=== PATIENT | male | born 1980 | race Caucasian/White ===

== ENCOUNTER 2016-11-19 20:50 | Emergency (ER) | payer OTHER ==
[2016-11-19 20:57] VITALS: BP 127/80; PULSE 90; TEMP 97.8; BMI 31.1
[2016-11-19 21:51] LABS: MCH 31.5 pg (25.7-33.7); MEAN CELL VOLUME 92.7 fl (80-96); MEAN PLT VOLUME 8.9 fl (7.5-11.1); PLATELET COUNT 183 K/MM3 (134-434); RDW 13.7 % (11.9-15.9); WHITE BLOOD COUNT 5.9 K/mm3 (4.0-10.0)
--- NOTE | 2016-11-19 21:57 | PDOC ---
History of Present Illness - General Chief Complaint: Diarrhea Stated Complaint: COUGHING AND DIARRHEA History Source: Patient Exam Limitations: No Limitations - History of Present Illness Initial Comments: 11/19/16 21:57 Patient is a 36-year-old male with history of bipolar disorder, tonsillectomy, back surgery, left ankle surgery here with multiple complaints which include coughing, diarrhea. Patient states that for the past 4-5 days he gets up at night coughing, then sweating, no fever which lasts for about 15 minutes, then has sudden onset of cramping in his left side of abdomen then diarrhea. He describes it diarrhea as not watery but lumpy and dry. States he has no symptoms during the day. These symptoms started after eating a burrito with somebody spotting. States he had recurring episodes all night. States symptoms started after he bit through a burrito and he saw the glob of spit. Denies any homicidal or suicidal ideations. PMD/psych: [facility] PMHx: As above PFAMHx: Noncontributory to this exam PSocHx: neg ALL: NKDA GENERAL/CONSTITUTIONAL: [No fever or chills. No weakness. No weight change.] HEAD, EYES, EARS, NOSE AND THROAT: [No change in vision. No ear pain or discharge. No sore throat.] CARDIOVASCULAR: [No chest pain or shortness of breath.] RESPIRATORY: [No cough, wheezing, or hemoptysis.] GASTROINTESTINAL: [No nausea, vomiting,(+) diarrhea or constipation. No rectal bleeding.] GENITOURINARY: [No dysuria, frequency, or change in urination.] MUSCULOSKELETAL: [No joint or muscle swelling or pain. No neck or back pain.] SKIN AND BREASTS: [No rash or easy bruising.] NEUROLOGIC: [No headache, vertigo, loss of consciousness, or loss of sensation.] PSYCHIATRIC: (+) depression or anxiety.] ENDOCRINE: [No increased thirst. No abnormal weight change.] HEMATOLOGIC/LYMPHATIC: [No anemia, easy bleeding, or history of blood clots.] ALLERGIC/IMMUNOLOGIC: [No hives or skin allergy. No latex allergy.] GENERAL: [The patient is awake, alert, and fully oriented, in no acute distress. ] HEAD: [Normal with no signs of trauma.] EYES: [Pupils equal, dilated, round and reactive to light, extraocular movements intact, sclera anicteric, conjunctiva clear.] ENT: [Ears normal, nares patent, oropharynx clear without exudates. Moist mucous membranes.] NECK: [Normal range of motion, supple without lymphadenopathy, JVD, or masses.] LUNGS: [Breath sounds equal, clear to auscultation bilaterally. No wheezes, and no crackles.] HEART: [Regular rate and rhythm, normal S1 and S2 without murmur, rub.] ABDOMEN: [Soft, nontender, normoactive bowel sounds. No guarding, no rebound. No masses.] EXTREMITIES: [Normal range of motion, no edema. No clubbing or cyanosis. No cords, erythema, or tenderness.] NEUROLOGICAL: [Cranial nerves II through XII grossly intact. Normal speech, normal gait.] PSYCH: [Normal mood, normal affect.] SKIN: [Warm, Dry, normal turgor, no rashes or lesions noted.] Past History - Past Medical History Allergies/Adverse Reactions: Allergies Allergy/AdvReac Type Severity Reaction Status Date / Time animals dander. Allergy Difficulty Uncoded 11/19/16 20:55 Breathing Home Medications: Ambulatory Orders NK [No Known Home Medication] 09/22/15 Psychiatric Problems: Yes (bipolar) - Surgical History Neurologic Surgery: Yes (l4 laminectomy) - Psycho/Social/Smoking Cessation Hx Anxiety: No Suicidal Ideation: No Smoking Status: Yes Smoking History: Current every day smoker Number of Cigarettes Smoked Daily: 5 Information on smoking cessation initiated: No Hx Alcohol Use: Yes (last drink friday ) Drug/Substance Use Hx: Yes (marijuana) Substance Use Type: Marijuana Hx Substance Use Treatment: No *Physical Exam - Vital Signs Last Vital Signs Temp Pulse Resp BP Pulse Ox 97.8 F 90 18 127/80 97 11/19/16 20:56 11/19/16 20:56 11/19/16 20:56 11/19/16 20:56 11/19/16 20:56 ED Treatment Course - LABORATORY CBC & Chemistry Diagram: 11/19/16 21:20 11/19/16 22:30 - RADIOLOGY Radiology Studies Ordered: Category Date Time Status CHEST PA & LAT [RAD] Stat Radiology 11/19/16 21:20 Ordered Medical Decision Making - Medical Decision Making 11/19/16 22:05 Patient is a 36-year-old male with history of bipolar disorder, tonsillectomy, back surgery, left ankle surgery here with multiple complaints which include coughing, diarrhea. Symptoms are as nonspecific and may be related to his psychiatric disorder. However we will get labs and chest x-ray rule out any organic source. 11/19/16 23:50 Lab work there are no acute findings, chest x-ray is negative. Patient now complains of constipation. I discussed the physical exam findings, ancillary test results and final diagnoses with the patient. I answered all of the patient's questions. The patient was satisfied with the care received and felt comfortable with the discharge plan and treatment plan. The Patient agrees to follow up with the primary care physician within 24-72 hours. *DC/Admit/Observation/Transfer Diagnosis at time of Disposition: Cough Diarrhea Qualifiers: Diarrhea type: unspecified type Qualified Code(s): R19.7 - Diarrhea, unspecified - Discharge Dispostion Disposition: HOME Condition at time of disposition: Stable - Patient Instructions Printed Discharge Instructions: DI for Cough -- Adult, DI for Diarrhea and Traveler's Diarrhea -- Adult Additional Instructions: Your Discharge Instructions: You must call primary care physician within 24 hours to arrange follow-up. Return to the Emergency Department with any new, persistent or worsening symptoms, for fever, chills, SOB, dizziness or any other concerning changes that may occur. You need to follow-up with your primary care doctor to get a GI referral
--- NOTE | 2016-11-19 23:20 | PDOC ---
*Physical Exam - Vital Signs Last Vital Signs Temp Pulse Resp BP Pulse Ox 97.8 F 90 18 127/80 97 11/19/16 20:56 11/19/16 20:56 11/19/16 20:56 11/19/16 20:56 11/19/16 20:56 ED Treatment Course - LABORATORY CBC & Chemistry Diagram: 11/19/16 21:20 11/19/16 22:30 - ADDITIONAL ORDERS Additional order review: Laboratory Results 11/19/16 21:20 Sodium Cancelled Potassium Cancelled Chloride Cancelled Carbon Dioxide Cancelled Anion Gap Cancelled BUN Cancelled Creatinine Cancelled Creat Clearance w eGFR Cancelled Random Glucose Cancelled Calcium Cancelled Total Bilirubin Cancelled AST Cancelled ALT Cancelled Alkaline Phosphatase Cancelled Total Protein Cancelled Albumin Cancelled 11/19/16 21:20 RBC 5.24 MCV 92.7 MCHC 34.0 RDW 13.7 MPV 8.9 Medical Decision Making - Medical Decision Making 11/19/16 23:19 agree with care from GABE Bettencourt *DC/Admit/Observation/Transfer Diagnosis at time of Disposition: Cough, Diarrhea - Discharge Dispostion Disposition: HOME Condition at time of disposition: Stable - Patient Instructions Printed Discharge Instructions: DI for Cough -- Adult, DI for Diarrhea and Traveler's Diarrhea -- Adult Additional Instructions: Your Discharge Instructions: You must call primary care physician within 24 hours to arrange follow-up. Return to the Emergency Department with any new, persistent or worsening symptoms, for fever, chills, SOB, dizziness or any other concerning changes that may occur. You need to follow-up with your primary care doctor to get a GI referral
[2016-11-19 23:30] LABS: ALBUMIN 4.7 g/dl (3.4-5.0); ALK PHOS 55 U/L (45-117); ANION GAP 11 (8-16); BILIRUBIN,TOTAL 0.9 mg/dL (0.2-1.0); CALCIUM 9.1 mg/dL (8.5-10.1); CO2 24 mmol/L (21-32); CREATININE 0.8 mg/dL (0.7-1.3); GLUCOSE,RANDOM 90 mg/dL (74-106); SGOT/AST 46 U/L (15-37); SGPT/ALT 44 U/L (12-78); TOT PROT 7.2 g/dl (6.4-8.2)
== END 2016-11-20 00:20 | disposition home or self-care (01) ==
LOC: JER 20:50
DX: R05 Cough (principal); R19.7 Diarrhea, unspecified; F17.210 Nicotine dependence, cigarettes, uncomplicated; F31.9 Bipolar disorder, unspecified
CPT/HCPCS: 36415; 71020-TC; 80053; 85027; 99282-25

== ENCOUNTER 2017-10-01 20:41 | Emergency (ER) | payer OTHER ==
--- NOTE | 2017-10-01 20:48 | PDOC ---
Rapid Medical Evaluation Time Seen by Provider: 10/01/17 20:43 Medical Evaluation: Allergies Allergy/AdvReac Type Severity Reaction Status Date / Time animals dander. Allergy Difficulty Uncoded 11/19/16 20:55 Breathing 10/01/17 20:44 The patient presents with a chief complaint of: std w/u. unprotected sex 4 hrs ago with unknown female I have performed a brief in-person evaluation of this patient. Pertinent physical exam findings: vss I have ordered the following: std w/u, gc/chyl. hiv, rpr The patient will proceed to the ED for further evaluation. Discharge Disposition - Diagnosis Concern about STD in male without diagnosis - Referrals - Patient Instructions - Post Discharge Activity
[2017-10-01 20:50] VITALS: BP 123/81; PULSE 90; TEMP 97.9; BMI 31.6
--- NOTE | 2017-10-01 21:14 | PDOC ---
History of Present Illness - General Chief Complaint: Non EmpBld/Body Flud Exposure Stated Complaint: EVALUATION Time Seen by Provider: 10/01/17 20:43 History Source: Patient - History of Present Illness Timing/Duration: 4-6 hours Past History - Past Medical History Allergies/Adverse Reactions: Allergies Allergy/AdvReac Type Severity Reaction Status Date / Time No Known Drug Allergies Allergy Verified 10/01/17 20:46 animals dander. Allergy Difficulty Uncoded 11/19/16 20:55 Breathing Home Medications: Ambulatory Orders NK [No Known Home Medication] 09/22/15 COPD: No Psychiatric Problems: Yes (bipolar) - Surgical History Neurologic Surgery: Yes (l4 laminectomy) - Suicide/Smoking/Psychosocial Hx Smoking Status: Yes Smoking History: Current every day smoker Have you smoked in the past 12 months: No Number of Cigarettes Smoked Daily: 5 Information on smoking cessation initiated: No Hx Alcohol Use: Yes Drug/Substance Use Hx: Yes (marijuana) Substance Use Type: Alcohol, Marijuana Hx Substance Use Treatment: No Review of Systems - Review of Systems Constitutional: No: Fever : No: Dysuria, Discharge *Physical Exam - Vital Signs Last Vital Signs Temp Pulse Resp BP Pulse Ox 97.9 F 90 18 123/81 97 10/01/17 20:47 10/01/17 20:47 10/01/17 20:47 10/01/17 20:47 10/01/17 20:47 - Physical Exam General Appearance: Yes: Appropriately Dressed. No: Apparent Distress HEENT: positive: Normal Voice Neck: positive: Supple Respiratory/Chest: negative: Respiratory Distress Integumentary: positive: Dry, Warm Neurologic: positive: Fully Oriented, Alert, Normal Mood/Affect Medical Decision Making - Medical Decision Making 10/01/17 21:09 37-year-old male here for STD testing after condom broke with a new female during sexual intercourse 4 hours ago. Denies any symptoms at this time. No h/ o STD and tested neg for HIV in the past per pt. Tests sent from triage. Pt prefers to call for results. Pt informed that that even if he was exposed to a disease tonight, it will take a while for the body to mount a reaction, so if he is concerned, should be retested again in the near future or return to ER if becomes symptomatic *DC/Admit/Observation/Transfer Diagnosis at time of Disposition: Concern about STD in male without diagnosis - Discharge Dispostion Disposition: HOME Condition at time of disposition: Good - Referrals - Patient Instructions Additional Instructions: Some of your tests will come back by tomorrow, call for results at [phone]
[2017-10-01 21:19] LABS: URINE APPEARANCE CLEAR; URINE BILIRUBIN NEGATIVE (NEGATIVE); URINE BLOOD 1+ (NEGATIVE); URINE COLOR YELLOW; URINE GLUCOSE (UA) NEGATIVE (NEGATIVE); URINE KETONE TRACE (NEGATIVE); URINE LEUK ESTERASE NEGATIVE (NEGATIVE); URINE NITRITE NEGATIVE (NEGATIVE); URINE PROTEIN NEGATIVE (NEGATIVE)
[2017-10-01 21:22] LABS: URINE MUCUS RARE; URINE RBC 2 /hpf (0-3); URINE WBC <1 /hpf (3-5)
[2017-10-02 11:53] LABS: URINE LEUK ESTERASE Negative (NEGATIVE)
== END 2017-10-01 21:16 | disposition home or self-care (01) ==
LOC: JERFT 20:41
DX: Z11.3 Encounter for screening for infections with a predominantly sexual mode of transmission (principal)
CPT/HCPCS: 36415; 81003; 81015; 87491; 87591; 99281-25

== ENCOUNTER 2019-09-03 15:17 | Emergency (ER) | payer OTHER ==
[2019-09-03 15:36] VITALS: BP 116/69; PULSE 79; TEMP 98.4; BMI 29.2
--- NOTE | 2019-09-03 17:36 | PDOC ---
History of Present Illness - General Chief Complaint: Pain Stated Complaint: NECK PAIN 7 HERNIATED DISC THERAPIST REFERRED FOR Time Seen by Provider: 09/03/19 16:56 History Source: Patient Exam Limitations: No Limitations - History of Present Illness Initial Comments: 09/03/19 17:31 38y M hx of herniated discs with 3 years of neck pain presents for prescription pain medicaiton. Patient states that he is being followed by physical therapy for chronic neck pain and had a CAT scan that revealed multiple herniated disks so was sent to the emergency department for a prescription of narcotics. Patient states that his pain has been bothering for 3 years but they finally have evidence of it from the CAT scan. Patient has been taking naproxen with mild relief. He does endorse mild neck pain and tingling when he moves his head left and right. Patient denies any fever or chills, no change to his baseline pain. Patient states He was given a referral to pain management By physical therapy. After I described the importance of him seeing pain management he states that he did see him to do them today also and they said that they will not touch him with a ten foot pole And that he needs to see neurosurgery. Patient denies any urinary incontinence or bowel incontinence. No recent injuries The patient denies any chest pain, shortness of breath, headache. ROS: Constitutional - no reported Fever, Chills, HEENT: +neck pain/back pain no reported vision changes, sore throat Respiratory: no reported cough, sob, hemoptysis Cardiac: no reported chest pain, palpitations, light headedness, leg swelling Abd/GI: no reported abd pain, nausea, vomiting, blood per rectum, melena, diarrhea : no reported dysuria, frequency, discharge Musculskelatal - no reported back pain, joint swelling skin - no reported bruising, erythema, rash neurological: no reported headache, numbness, focal weakness, tingling, ataxia, hematologic: no reported easy bruising, easy bleeding Physicial exam GENERAL: The patient is awake, alert, and fully oriented, Nontoxic - in no acute distress. HEAD: Normocephalic, atraumatic. EYES: extraocular movements intact, sclera anicteric, conjunctiva clear. ENT: Normal voice, Moist mucous membranes. NECK: Normal range of motion, supple, No focal midline or paraspinal tenderness , No limitations of range of motion with movement of neck EXTREMITIES: Normal range of motion, no edema. NEUROLOGICAL: No facial assymetry, Normal speech, [employer] strength symmetric 5 out of 5, sensation intact on the upper extremities, normal gait. PSYCH: Normal mood, normal affect. SKIN: Warm, Dry, normal turgor, Patient with chronic pain taking Aleve with minimal improvement. Patient has no new neurologic complaints or deficits Patient will need pain management For control of his chronic pain. Patient does not seem to have any limitations of movement secondary to pain he looks comfortable walking around talking on his phone moving all extremities extremities spontaneously symmetrically without discomfort. Patient refuses Tramadol stating "he can get that anywhere" Patient not does not have any records on [employer]. I will give the patient a couple of doses of Percocet but he really needs to follow-up with pain management. Patient works multiple jobs requires standing as well as heavy lifting I recommended that patient refrain from these activities until his pain is better and that he sees pain management Return precautions were discussed I discussed the physical exam findings, ancillary test results and final diagnoses with the patient. I answered all of the patient's questions. The patient was satisfied with the care received and felt comfortable with the discharge plan and treatment plan. The patient will call their primary care physician within 24 hours to arrange follow-up and will return to the Emergency Department with any new, persistent or worsening symptoms. Past History - Past Medical History Allergies/Adverse Reactions: Allergies Allergy/AdvReac Type Severity Reaction Status Date / Time No Known Drug Allergies Allergy Verified 09/03/19 15:21 animals dander. Allergy Difficulty Uncoded 09/03/19 15:21 Breathing Home Medications: Ambulatory Orders Cyclobenzaprine HCl [Flexeril -] 10 mg PO HS 09/03/19 Oxycodone HCl/Acetaminophen [Percocet 5-325 mg Tablet -] 1 combo PO Q6H PRN 1 Days #2 tablet MDD 2 09/03/19 COPD: No Psychiatric Problems: Yes (ADULT BIPOLAR DISORDER) Other medical history: HERNIATED DISC - Surgical History Neurologic Surgery: Yes (l4 laminectomy) - Psycho Social/Smoking Cessation Hx Smoking Status: Yes Smoking History: Current every day smoker Have you smoked in the past 12 months: No Number of Cigarettes Smoked Daily: 6 Information on smoking cessation initiated: Yes Hx Alcohol Use: Yes (2 drinks /week) Drug/Substance Use Hx: Yes (marijuana) Substance Use Type: Alcohol, Marijuana Hx Substance Use Treatment: No *Physical Exam - Vital Signs Last Vital Signs Temp Pulse Resp BP Pulse Ox 98.4 F 79 16 116/69 99 09/03/19 15:19 09/03/19 15:19 09/03/19 15:19 09/03/19 15:19 09/03/19 15:19 Discharge - Discharge Information Problems reviewed: Yes Clinical Impression/Diagnosis: Herniated cervical disc, Chronic neck pain Condition: Stable Disposition: HOME - Admission No - Additional Discharge Information Prescriptions: Oxycodone HCl/Acetaminophen [Percocet 5-325 mg Tablet -] 1 combo PO Q6H PRN 1 Days #2 tablet MDD 2 PRN Reason: Pain - Follow up/Referral Referrals: Beck Mills MD [Staff Physician] - - Patient Discharge Instructions Patient Printed Discharge Instructions: DI for Chronic Neck Pain Additional Instructions: Return to the emergency department immediately with ANY new, persistent or worsening symptoms Including any focal weakness, numbness, tingling, urinary or bowel incontinence or any other complaints. You MUST call and follow up with Pain management and/or neurosurgery for further evaluation of your symptoms. Results were discussed with you. Please make sure your doctor reviews the results of your emergency evaluation. Your Emergency Department visit is not complete without a follow up with your doctor. Print Language: HUNGARIAN - Post Discharge Activity
== END 2019-09-03 18:02 | disposition home or self-care (01) ==
LOC: FER 15:17
DX: M50.80 Other cervical disc disorders, unspecified cervical region (principal); G89.29 Other chronic pain; F17.210 Nicotine dependence, cigarettes, uncomplicated; F31.9 Bipolar disorder, unspecified; J30.81 Allergic rhinitis due to animal (cat) (dog) hair and dander
CPT/HCPCS: 99282-25